=== PATIENT | female | born 1970 | race African-American/Black ===

== ENCOUNTER 2023-08-02 04:33 | Day surgery (SDC) | payer OTHER ==
[2023-07-31 11:01] VITALS: BMI 36.3
[2023-08-02 11:12] VITALS: TEMP 98.2
[2023-08-02 11:24] VITALS: BP 105/74; PULSE 93; RESP 17
== END 2023-08-02 11:24 | disposition home or self-care (01) ==
LOC: JASU-ENDO 04:33
PROVIDERS: ATTEND Internal Medicine Gastroenterology
PROC: 0DJD8ZZ Inspection of Lower Intestinal Tract, Via Natural or Artificial Opening Endoscopic (ICD-10-PCS; principal; 2023-08-02 10:18)
DX: Z12.11 Encounter for screening for malignant neoplasm of colon (principal)
CPT/HCPCS: 81025; 82962